=== PATIENT | female | born 2000 | race Caucasian/White ===

== ENCOUNTER 2018-07-10 12:14 | Day surgery (SDC) | payer OTHER ==
[2018-07-07 16:34] VITALS: BMI 24.1
[2018-07-10] MEDS ORDERED: Sodium Bicarbonate 2.5 MEQ/5 ML VIAL ONE (12:38)
--- NOTE | 2018-07-10 15:43 | ULT ---
BILATERAL INGUINAL LYMPH NODE ULTRASOUND: HISTORY: Pain. COMPARISON: None. TECHNIQUE: Real-time, calvo scale, and color evaluation of both inguinal regions was performed. FINDINGS: In the right inguinal region at the area of palpable abnormality is a 1.1 cm lymph node wit h normal fatty hilum and no abnormal thickened cortex. These lymph nodes in the right inguinal regio n are symmetric. For comparison, the left inguinal lymph nodes were interrogated and also were rohan l. No focal area to target for an ultrasound-guided biopsy. IMPRESSION: Normal-appearing bilateral inguinal lymph nodes. The patient was counseled on physical exam followup . POS: [facility]
== END 2018-07-10 13:00 | disposition home or self-care (01) ==
LOC: ULT 12:14
PROVIDERS: ATTEND Obstetrics & Gynecology
DX: R59.0 Localized enlarged lymph nodes (principal)
CPT/HCPCS: 76999

== ENCOUNTER 2019-04-05 13:18 | Day surgery (SDC) | payer OTHER ==
[2019-04-04 09:30] VITALS: BMI 22.7
[~2019-04-05 13:18] MED LIST: Dexamethasone 20 MG/5 ML VIAL ONE; Esmolol 100 MG/10 ML VIAL ONE; Lidocaine 1% PF 5 ML VIAL ONE; Ondansetron PF 4 MG/2 ML Vial ONE; PROPOFOL 200 MG/20 ML VIAL ONE; Succinylcholine Chloride 20 MG/ML 10 ml SYRINGE FS ONE
[2019-04-05 14:50] LABS: BHCG - Serum Negative (NEGATIVE); Pregs Control Background? CLEAR/WHITE (CLR/WHITE); Pregs Control Bar Appear? YES (CONTROL BAR)
[2019-04-05] MEDS ORDERED: Midazolam HCl 2 mg/2 ml Vial ONE (15:59)
[2019-04-05] MEDS ORDERED: Fentanyl 100 MCG/2 ML VIAL ONE ×2 (15:59→17:04)
[2019-04-05] MEDS ORDERED: Promethazine HCl 25 MG/ML VIAL ONE (16:00)
--- NOTE | 2019-04-06 09:26 | OP ---
DATE OF PROCEDURE: 04/05/2019 PREOPERATIVE DIAGNOSES: 1. Chronic tonsillitis. 2. Recurrent tonsillitis. POSTOPERATIVE DIAGNOSES: 1. Chronic tonsillitis. 2. Recurrent tonsillitis. PROCEDURE PERFORMED: Tonsillectomy over 12 years of age. FINDINGS: Patient had large tonsils that were sent for lymphoma studies. DESCRIPTION OF PROCEDURE: After consent was obtained, the patient was identified, brought to the operating room, and placed on the operating table in the supine position. General endotracheal anesthesia and intravenous access was obtained and we proceeded with positioning the patient for oropharyngeal surgery. Oropharyngeal exposure was obtained with a April-Henry mouth gag after a head drape was placed and secured with a towel clip. The April-Henry mouth gag was then suspended from the Ray tray and palatal elevation was achieved with a red rubber catheter. The right tonsil was addressed first. We used a curved Allis to grasp the tonsil and retract it medially as an anterior pillar incision was made with a #12 blade. The retrotonsillar fascial plane was then established and blunt dissection was performed with the suction cautery. Blood vessels were anticipated, identified, and cauterized as they were encountered. Ultimately, dissection was carried to the posterior tonsillar pillar mucosa which was incised hemostatically, as well as the base of tongue connection. The tonsil was then passed off as a specimen and bleeding points within the tonsillar bed were cauterized under direct visualization. We subsequently turned our attention to the contralateral side, where using a similar technique, a near identical procedure was performed. Again, the tonsil was grasped and retracted medially with a curved Allis as an anterior pillar incision was made with a #12 blade. The retrotonsillar fascial plane was established and while the anterior pillar was retracted medially, the hemostatic blunt dissection of the tonsil with a suction cautery was performed with blood vessels anticipated, identified, and cauterized as they were encountered. Again, dissection continued to the base of tongue and posterior tonsillar pillar mucosa which was incised in a hemostatic fashion. The tonsillar beds were then carefully inspected and bleeding points were identified and cauterized with a suction cautery. After this portion of the procedure, hemostasis was completely obtained. The patient's oral cavity was copiously irrigated with iced saline and subsequently suctioned. We then used the red rubber catheter to suction the gastric contents and the patient was subsequently aroused, awakened, and extubated without difficulty and transported to the recovery room in stable condition. There were no complications. Job ID: [id number]
== END 2019-04-05 18:40 | disposition home or self-care (01) ==
LOC: SDC 13:18
PROVIDERS: ATTEND Specialist
PROC: 0CTPXZZ Resection of Tonsils, External Approach (ICD-10-PCS; principal; 2019-04-05)
DX: J03.91 Acute recurrent tonsillitis, unspecified (principal); J35.01 Chronic tonsillitis
CPT/HCPCS: 84703; 85014; 88184; 88304; J1100; J2001; J2250; J2405; J2550; J2704; J3010

== ENCOUNTER 2020-04-07 10:58 | Outpatient (CLI) | payer OTHER ==
--- NOTE | 2020-04-07 11:40 | ULT ---
Exam: Right breast ultrasound Limited: HISTORY: Patient presents with a palpable finding in the right breast. The palpable area of concern in the right breast at 12:00 is evaluated. There is some minimally heter ogeneous echogenic linear tissue which potentially could account for the palpable finding. No evidence for solid or cystic mass. IMPRESSION: BI-RADS Category 2 benign findings. Consider baseline mammogram at age 33. If the patient develops a new palpable finding. Consider ultrasound examination of that region at haleigh t time.
== END 2020-04-07 10:59 | disposition home or self-care (01) ==
LOC: BICULT 10:58
PROVIDERS: ATTEND Student in an Organized Health Care Education/Training Program
DX: N63.10 Unspecified lump in the right breast, unspecified quadrant (principal)

== ENCOUNTER 2020-10-28 09:27 | Outpatient (CLI) | payer OTHER | END 2020-10-28 09:28 | disposition home or self-care (01) | LOC: SCSMRI 09:27 | PROVIDERS: ATTEND Orthopaedic Surgery | DX: S43.422A Sprain of left rotator cuff capsule, initial encounter (principal) ==

== ENCOUNTER 2020-12-03 09:54 | Day surgery (SDC) | payer OTHER ==
[2020-12-02 15:58] VITALS: BMI 25.0
== END 2020-12-03 18:10 | disposition home or self-care (01) ==
LOC: SDC 09:54
PROVIDERS: ATTEND Orthopaedic Surgery
PROC: 0RBK4ZZ Excision of Left Shoulder Joint, Percutaneous Endoscopic Approach (ICD-10-PCS; principal; 2020-12-03)
PROC: 3E0T3BZ Introduction of Anesthetic Agent into Peripheral Nerves and Plexi, Percutaneous Approach (ICD-10-PCS; principal; 2020-12-03)
PROC: 0LS40ZZ Reposition Left Upper Arm Tendon, Open Approach (ICD-10-PCS; principal; 2020-12-03)
PROC: 0RHK04Z Insertion of Internal Fixation Device into Left Shoulder Joint, Open Approach (ICD-10-PCS; principal; 2020-12-03)
DX: S46.112A Strain of muscle, fascia and tendon of long head of biceps, left arm, initial encounter (principal); M24.812 Other specific joint derangements of left shoulder, not elsewhere classified; M70.812 Other soft tissue disorders related to use, overuse and pressure, left shoulder; E03.9 Hypothyroidism, unspecified; X50.0XXA Overexertion from strenuous movement or load, initial encounter; Y93.B3 Activity, free weights
CPT/HCPCS: C1713; J0171; J0690; J1100; J1200; J1885; J2250; J2405; J2550; J2704; J3010; S0020; S0028